=== PATIENT | female | born 1995 | race Caucasian/White ===

== ENCOUNTER 2017-07-29 22:37 | Emergency (ER) | payer OTHER ==
[2017-07-29 22:38] VITALS: BMI 32.8
[2017-07-29 22:57] VITALS: BP 146/94; PULSE 118; RESP 20; TEMP 98.6; O2SAT 98
--- NOTE | 2017-07-30 04:20 | C.PDOC ---
Time Seen by Provider: 07/29/17 23:34 Chief Complaint (Nursing): Abnormal Skin Integrity Past Medical History Vital Signs: Last Vital Signs Temp 98.6 F 07/29/17 22:54 Pulse 118 H 07/29/17 22:54 Resp 20 07/29/17 22:54 BP 146/94 H 07/29/17 22:54 Pulse Ox 98 07/29/17 22:54 - [facility] MANUAL ASSIST DELIV NEC (12/23/14) Family History: States: Unknown Family Hx - Social History Hx Tobacco Use: Yes Hx Alcohol Use: Yes Hx Substance Use: Yes - Immunization History Hx Tetanus Toxoid Vaccination: Yes Hx Influenza Vaccination: Yes Hx Pneumococcal Vaccination: No ED Course And Treatment O2 Sat by Pulse Oximetry: 98 Disposition - Disposition Disposition Time: 23:00 Condition: UNKNOWN - Clinical Impression Clinical Impression: Patient left without being seen
== END 2017-07-29 23:34 | disposition left against medical advice (07) ==
LOC: C.ER 22:37
DX: Z02.89 Encounter for other administrative examinations (principal); F19.10 Other psychoactive substance abuse, uncomplicated